=== PATIENT | female | born 1990 | race Caucasian/White ===

== ENCOUNTER 2016-11-29 06:22 | Emergency (ER) | payer BC ==
[~2016-11-29] VITALS: Ht 165.1 cm; Wt 54.4 kg
[2016-11-29 06:46] LABS: BASO # 0.1 x10^3/uL (0.0-0.2); BASO % 2 % (0-3); EOS % 2 % (0-3); HEMOGLOBIN 14.4 g/dL (12.0-15.5); LYMPH # 2.7 x10^3/uL (1.0-4.8); LYMPH % 33 % (24-48); MEAN CORPUSCULAR HEMOGLOBIN 29 pg (25-35); MEAN CORPUSCULAR HGB CONC 34 g/dL (31-37); MEAN CORPUSCULAR VOLUME 87 fL (79-100); MONO % 8 % (0-9); NEUT % 56 % (31-73); PLATELET COUNT 328 x10^3/uL (140-400); RED BLOOD COUNT 4.98 x10^6/uL (3.50-5.40); WHITE BLOOD COUNT 8.2 x10^3/uL (4.0-11.0)
--- NOTE | 2016-11-29 06:54 | PHYS DOC ---
Past Medical History Past Medical History: No Pertinent History Past Surgical History: No Surgical History Additional Information: Pt reports she "vapes". Alcohol Use: Heavy Additional Information: Pt reports she drinks everyday. Drug Use: None Adult General Chief Complaint Chief Complaint: ALCOHOL INTOXICATION HPI HPI Patient is a 26 year old female who presents to the emergency department for alcohol intoxication. The patient was found in her car in the parking lot of her apartment complex this morning. Patient brought to the emergency department by EMS who was called by authorities on scene. The patient admits to drinking alcohol last night. Patient is not sure how much she drank. The patient is very tearful at this time. Patient denies suicidal ideation. Patient denies any other drug use. Patient complains of right-sided pain. Patient states that she suffered a fall 3 days ago at her home after tripping over her cat and landing on her right side. Patient states that she has had severe pain along her right side since the injury. Review of Systems Review of Systems Constitutional: Denies fever or chills [] Eyes: Denies change in visual acuity, redness, or eye pain [] HENT: Denies nasal congestion or sore throat [] Respiratory: Denies cough or shortness of breath [] Cardiovascular: Denies chest pain or edema [] GI: Abdominal pain, denies nausea, vomiting, bloody stools or diarrhea [] : Denies dysuria or hematuria [] Musculoskeletal: Denies back pain or joint pain [] Integument: Denies rash or skin lesions [] Neurologic: Denies headache, focal weakness or sensory changes [] Current Medications Current Medications Current Medications Medications (Trade) Dose Ordered Sig/Martín Start Time Stop Time Status Last Admin Dose Admin Famotidine (Pepcid) 20 mg 1X ONCE 11/29/16 07:00 11/29/16 07:01 DC 11/29/16 06:44 20 MG Folic Acid (Folic Acid) 1 mg 1X ONCE 11/29/16 07:00 11/29/16 07:01 DC 11/29/16 06:34 1 MG Lorazepam (Ativan) 1 mg 1X ONCE 11/29/16 07:00 11/29/16 07:01 Cancel Multivitamins (Thera M Plus) 1 tab 1X ONCE 11/29/16 07:00 11/29/16 07:01 DC 11/29/16 06:34 1 TAB Naproxen (Naprosyn) 500 mg 1X STAT 11/29/16 07:46 11/29/16 07:48 DC 11/29/16 08:13 500 MG Ondansetron HCl (Zofran) 4 mg 1X ONCE 11/29/16 07:00 11/29/16 07:01 DC 11/29/16 06:44 4 MG Sodium Chloride (Iv Sodium Chloride 0.9% 1000ml Bag) 1,000 ml @ 1,000 mls/hr Q1H 11/29/16 07:00 11/29/16 07:59 DC 11/29/16 06:45 1,000 MLS/HR Thiamine HCl (Vitamin B-1) 100 mg 1X ONCE 11/29/16 07:00 11/29/16 07:01 DC 11/29/16 06:34 100 MG Allergies Allergies Allergies Coded Allergies Type Severity Reaction Last Updated Verified No Known Drug Allergies 08/28/13 No Physical Exam Physical Exam Constitutional: Alert, afebrile, slight slurring speech, tearful. [] HENT: Normocephalic, atraumatic, bilateral external ears normal, oropharynx moist, no oral exudates, nose normal. [] Eyes: PERRLA, EOMI, conjunctiva normal, injected sclera, no discharge. [] Neck: Normal range of motion, no tenderness, supple, no stridor. [] Cardiovascular:Heart rate regular rhythm, no murmur [] Lungs & Thorax: Bilateral breath sounds clear to auscultation [] Abdomen: Bowel sounds normal, soft, right upper quadrant tenderness to palpation with guarding, no rebound tenderness, no masses, no pulsatile masses. [] Skin: Warm, dry, no erythema, no rash. [] Back: No tenderness, no CVA tenderness. [] Extremities: Multiple transverse superficial epidermal lacerations with note dermal involvement to the volar aspect of right wrist, no tenderness, no cyanosis, no clubbing, ROM intact, no edema. [] Neurologic: Alert and oriented X 3, normal motor function, normal sensory function, no focal deficits noted. [] Psychologic: Affect normal, judgement impaired, mood labile. [] Current Patient Data Vital Signs Vital Signs Date Time Temp Pulse Resp B/P Pulse Ox O2 Delivery O2 Flow Rate FiO2 11/29/16 08:15 90 18 107/71 99 Room Air 3/17/17 06:35 97.9 97.9 Lab Values Laboratory Tests Test 11/29/16 06:35 11/29/16 06:40 White Blood Count 8.2x10^3/uL (4.0-11.0) Red Blood Count 4.98x10^6/uL (3.50-5.40) Hemoglobin 14.4g/dL (12.0-15.5) Hematocrit 43.0% (36.0-47.0) Mean Corpuscular Volume 87fL (79-100) Mean Corpuscular Hemoglobin 29pg (25-35) Mean Corpuscular Hemoglobin Concent 34g/dL (31-37) Red Cell Distribution Width 15.0% (11.5-14.5) H Platelet Count 328x10^3/uL (140-400) Neutrophils (%) (Auto) 56% (31-73) Lymphocytes (%) (Auto) 33% (24-48) Monocytes (%) (Auto) 8% (0-9) Eosinophils (%) (Auto) 2% (0-3) Basophils (%) (Auto) 2% (0-3) Neutrophils # (Auto) 4.6x10^3uL (1.8-7.7) Lymphocytes # (Auto) 2.7x10^3/uL (1.0-4.8) Monocytes # (Auto) 0.6x10^3/uL (0.0-1.1) Eosinophils # (Auto) 0.1x10^3/uL (0.0-0.7) Basophils # (Auto) 0.1x10^3/uL (0.0-0.2) Sodium Level 139mmol/L (136-145) Potassium Level 3.0mmol/L (3.5-5.1) L Chloride Level 105mmol/L (98-107) Carbon Dioxide Level 23mmol/L (21-32) Anion Gap 11 (6-14) Blood Urea Nitrogen 7mg/dL (7-20) Creatinine 0.9mg/dL (0.6-1.0) Estimated GFR (Cockcroft-Gault) 75.7 Glucose Level 117mg/dL (70-99) H Calcium Level 8.8mg/dL (8.5-10.1) Magnesium Level 2.0mg/dL (1.8-2.4) Total Bilirubin 0.5mg/dL (0.2-1.0) Direct Bilirubin 0.1mg/dL (0.0-0.2) Aspartate Amino Transferase (AST) 18U/L (15-37) Alanine Aminotransferase (ALT) 26U/L (14-59) Alkaline Phosphatase 108U/L (46-116) Total Protein 8.3g/dL (6.4-8.2) H Albumin 4.2g/dL (3.4-5.0) Ethyl Alcohol Level 321mg/dL (0-10) H Urine Collection Type Unknown Urine Color Yellow Urine Clarity Clear Urine pH 6.0 Urine Specific [place] <=1.005 Urine Protein Negativemg/dL (NEG-TRACE) Urine Glucose (UA) Negativemg/dL (NEG) Urine Ketones (Stick) Negativemg/dL (NEG) Urine Blood Negative (NEG) Urine Nitrite Negative (NEG) Urine Bilirubin Negative (NEG) Urine Urobilinogen Dipstick 0.2mg/dL (0.2 mg/dL) Urine Leukocyte Esterase Trace (NEG) Urine RBC 0/HPF (0-2) Urine WBC Occ/HPF (0-4) Urine Squamous Epithelial Cells Few/LPF Urine Bacteria Few/HPF (0-FEW) Urine Test Negative (NEG) Urine Opiates Screen Neg (NEG) Urine Methadone Screen Neg (NEG) Urine Barbiturates Neg (NEG) Urine Phencyclidine Screen Neg (NEG) Urine Amphetamine/Methamphetamine Neg (NEG) Urine Benzodiazepines Screen Neg (NEG) Urine Cocaine Screen Neg (NEG) Urine Cannabinoids Screen Neg (NEG) Urine Ethyl Alcohol Pos (NEG) Laboratory Tests 11/29/16 06:35 Laboratory Tests 11/29/16 06:35 EKG EKG Not performed [] Radiology/Procedures Radiology/Procedures [facility] [address] [place] [address] IMAGING REPORT Signed PATIENT: ERMIAS CORCORAN ACCOUNT: [id number] : 1990 LOCATION: ER AGE: 26 SEX: F EXAM STATUS: REG ER ORD. PHYSICIAN: TJ WHEAT MD REASON: right-sided pain status post fall 3 days ago PROCEDURE: PORTABLE CHEST 1V ADDENDUM Portable chest-addendum, 11/29/2016: There is also a recent appearing fracture along the lateral aspect of the right ninth rib, reportedly corresponding to an area of point tenderness. DICTATED AND SIGNED BY: LEN GUZMAN MD DATE: 11/29/16 0758 CC: TJ WHEAT MD; NO PCP ~ Portable chest, 11/29/2016: History: Fall, chest pain The heart size and pulmonary vascularity are normal. No pulmonary infiltrates are seen. There is no evidence of pleural fluid or pneumothorax. IMPRESSION: No acute cardiopulmonary abnormality is detected. DICTATED and SIGNED BY: LEN GUZMAN MD DATE: 11/29/16 0744 CC: JT WHEAT MD; NO PCP ~ Course & Med Decision Making Course & Med Decision Making Pertinent Labs and Imaging studies reviewed. (See chart for details) Patient was given IV fluids, Zofran, Pepcid, folic acid, multivitamin, and thiamine. Patient's chest x-ray shows evidence of a minimally displaced right rib fracture. Patient given oral Naprosyn. After speaking with the patient, she is voicing interest in receiving psychiatric help at this time as patient is not currently on any medications and patient has had recent thoughts of suicidal ideation as well as evidence of self-inflicted injuries on exam. I spoke with Damari of PAT team who evaluated the patient. The patient will be discharged with direct transfer to [facility] to allow patient to sober from her alcohol intoxication with the hope that she will transition into inpatient psychiatric care at that time. The patient was agreeable upon discharge. Patient prescribed Naprosyn for continued treatment of nondisplaced rib fracture. Dragon Disclaimer Dragon Disclaimer This electronic medical record was generated, in whole or in part, using a voice recognition dictation system. Departure Departure Impression: Primary Impression: Alcohol intoxication Additional Impressions: Dysphoric mood Self-inflicted laceration of wrist Right rib fracture Disposition: 65 XFER TO PSYCH HOSP/UNIT Condition: STABLE Referrals: NO PCP (PCP) Patient Instructions: Alcohol Intoxication, Rib Fracture Additional Instructions: You will be transferred to [facility] from the emergency department by private vehicle for further evaluation and treatment. Continue with Naprosyn therapy for treatment of your right rib fracture. Return to the emergency department for any worsening symptoms. Scripts Naproxen (Naprosyn)500 Mg [id number] Mg PO BID PRN PAIN #20 TAB Prov:TJ WHEAT MD 11/29/16 Problem Qualifiers Primary Impression: Alcohol intoxication Complication of substance-induced condition: with unspecified complication Qualified Code: F10.129 - Alcohol abuse with intoxication, unspecified Additional Impressions: Self-inflicted laceration of wrist Encounter type: initial encounter Laterality: right Qualified Code: S61.511A - Laceration without foreign body of right wrist, initial encounter Right rib fracture Encounter type: initial encounter Rib fracture type: single rib Fracture type: closed Qualified Code: S22.31XA - Fracture of one rib, right side, initial encounter for closed fracture TJ WHEAT MD Nov 29, 2016 06:54
[2016-11-29 06:59] LABS: CALCIUM 8.8 mg/dL (8.5-10.1); CREATININE 0.9 mg/dL (0.6-1.0); GFR 75.7
[2016-11-29 06:59] LABS: BARBITURATES NEG (NEG); BENZODIAZEPINES NEG (NEG); BILIRUBIN,URINE NEGATIVE (NEG); CANNABINOIDS NEG (NEG); COCAINE NEG (NEG); GLUCOSE,URINE NEGATIVE (NEG); METHADONE NEG (NEG); NITRITE,URINE NEGATIVE (NEG); OPIATES NEG (NEG); PHENCYCLIDINE NEG (NEG); PROTEIN,URINE NEGATIVE (NEG-TRACE); UROBILINOGEN,URINE 0.2 mg/dL (0.2 mg/dL)
[2016-11-29 07:00] LABS: ETHANOL, URINE POS (NEG)
[2016-11-29] MEDS ORDERED: MULTIVITAMIN with MINERAL TABLET. PO ONE (07:00)
[2016-11-29] MEDS ORDERED: FAMOTIDINE 20 MG/2 ML VIAL IVP ONE (07:00)
[2016-11-29] MEDS ORDERED: LORAZEPAM 2 MG/ML VIAL IV ONE (07:00)
[2016-11-29] MEDS ORDERED: IV NORMAL SALINE 1000ML BAG 1,000 ML IV SCH (07:00)
[2016-11-29] MEDS ORDERED: ONDANSETRON PF 4 MG/2 ML VIAL. IV ONE (07:00)
[2016-11-29] MEDS ORDERED: FOLIC ACID 1 MG TABLET PO ONE (07:00)
[2016-11-29] MEDS ORDERED: THIAMINE 100 MG TABLET. PO ONE (07:00)
[2016-11-29 07:05] LABS: ALBUMIN 4.2 g/dL (3.4-5.0); DIRECT BILIRUBIN 0.1 mg/dL (0.0-0.2); TOTAL BILIRUBIN 0.5 mg/dL (0.2-1.0); TOTAL PROTEIN 8.3 g/dL (6.4-8.2)
[2016-11-29 07:05] LABS: NEG OBC UR NEG; POS OBC UR POS
[2016-11-29 07:14] LABS: BACTERIA,URINE FEW /HPF (0-FEW); RBC,URINE 0 /HPF (0-2); SQUAMOUS EPITHELIAL CELL,UR FEW /LPF; WBC,URINE OCC /HPF (0-4)
[2016-11-29] MEDS ORDERED: NAPROXEN 500 MG TABLET PO STA (07:46)
--- NOTE | 2016-11-29 07:48 | RAD ---
Portable chest, 11/29/2016: History: Fall, chest pain The heart size and pulmonary vascularity are normal. No pulmonary infiltrates are seen. There is no evidence of pleural fluid or pneumothorax. IMPRESSION: No acute cardiopulmonary abnormality is detected.
[2016-11-29] MEDS ORDERED: NAPR500T PO (08:51)
[2016-11-29 09:00] VITALS: BP 118/74
== END 2016-11-29 09:26 ==
LOC: ER 06:22
DX: S22.31XA Fracture of one rib, right side, initial encounter for closed fracture (principal); S61.511A Laceration without foreign body of right wrist, initial encounter; F10.129 Alcohol abuse with intoxication, unspecified; Y90.9 Presence of alcohol in blood, level not specified; F39 Unspecified mood [affective] disorder; X78.9XXA Intentional self-harm by unspecified sharp object, initial encounter; Y93.89 Activity, other specified; Y92.481 Parking lot as the place of occurrence of the external cause; Y99.8 Other external cause status
CPT/HCPCS: 36415; 71010; 80048; 80076; 80305; 80320; 81001; 81025; 83735; 85027; 87086; 87186; 96361; 96374; 96375; 99285; J2405; J7030; S0028; G0480; G0481